=== PATIENT | male | born 1940 | race Caucasian/White ===

== ENCOUNTER 2018-08-17 13:12 | Inpatient (IN) | payer BC, OTHER ==
--- NOTE | 2018-08-17 14:07 | PDOC ---
Attending Attestation - HPI HPI: Patient is a 77 year old male with PMHx of blindness, DM, HTN, CAD, multiple stents, kidney stones, who was sent by his PCP with complaints of 3 weeks of RLQ pain and dysuria. Patient states that abdominal pain radiates to his back and groin. He states that this pain is not what his usual kidney stones feel like. Patient also notes burning upon urination. Denies any nausea, vomiting, diarrhea. Denies any chest pain, shortness of breath, difficulty breathing. Denies any recent travel or infections. PCP: Nicko Steele M.D. <Alexandra Ha - Last Filed: 08/17/18 14:44> - Resident Resident Name: Franklin Guillen - ED Attending Attestation I have performed the following: I have examined & evaluated the patient, The case was reviewed & discussed with the resident, I agree w/resident's findings & plan, Exceptions are as noted - Physicial Exam PE: 08/17/18 14:54 Patient is awake and alert, obese, in no distress Normocephalic and atraumatic mmm No JVD CTA RRR, tachycardic Abdomen is soft nondistended, mild to moderate right lower quadrant and right upper quadrant tenderness to deep palpation is appreciated, there is no guarding or rebound, no palpable hernias, positive right CVA tenderness to palpation; bowel sounds are normal and equal in all 4 quadrants - Medical Decision Making 08/17/18 14:55 77-year-old male presents with atraumatic right lower quadrant and right flank pain for the past 2 weeks, intermittent, associated with dysuria. Differential diagnosis includes hydronephrosis versus prostatitis versus appendicitis versus diverticulitis versus AAA. Bedside ultrasound shows no evidence of AAA. We'll obtain CBC/CMP/UA. Will obtain CT of abdomen and pelvis. Will reassess. <Lorenzo Wheeler - Last Filed: 08/17/18 14:56>
--- NOTE | 2018-08-17 14:14 | PDOC ---
History of Present Illness - General Chief Complaint: Pain Stated Complaint: SENT BY PCP R/O STONES Time Seen by Provider: 08/17/18 13:41 - History of Present Illness Initial Comments: 77 Yo M w a hx of kidney stones, HTN, T2DM, HLD, CAD s/p 2 stents, is here with 3 weeks of vague RLQ abdominal pain which radiates to his groin and right flank. He denies any nausea or vomiting. He has had mulitple uric acid kidney stones in the past, most recently in 1980. He states the pain he is currently experiencing is not like his prior kidney stones. He denies recent fevers, chills, or infections. Denies SOB, chest pain, or difficulty breathing. Denies dysuria, frequency, or urgency. Past History - Past Medical History Allergies/Adverse Reactions: Allergies Allergy/AdvReac Type Severity Reaction Status Date / Time No Known Allergies Allergy Verified 08/17/18 13:18 COPD: No DVT: No Diabetes: Yes HTN: Yes Hypercholesterolemia: Yes Kidney Stones: Yes Other medical history: blindness - Surgical History Cardiac Surgery: Yes (stents) - Suicide/Smoking/Psychosocial Hx Smoking History: Current some day smoker Cigars Per Day: 1 Information on smoking cessation initiated: Yes 'Breaking Loose' booklet given: 08/17/18 Hx Alcohol Use: No Drug/Substance Use Hx: No Substance Use Type: None Review of Systems - Review of Systems Constitutional: No: Fever, Malaise, Weakness, Unintentional Wgt. Loss HEENTM: No: Eye Pain, Recent change in vision (Patient is blind), Nose Congestion Respiratory: No: Cough, Orthopnea, Shortness of Breath, Stridor, Wheezing Cardiac (ROS): No: Chest Pain, Irregular Heart Rate, Lightheadedness ABD/GI: Yes: Symptoms Reported, See HPI. No: Abdominal Distended, Abd. Pain w/ defecation, Constipated, Diarrhea, Nausea, Poor Fluid Intake, Vomiting : Yes: Flank Pain, Hematuria (Patient is blind so cannot assess). No: Burning , Dysuria, Frequency Musculoskeletal: Yes: Back Pain. No: Neck Pain Integumentary: No: Bruising, Change in Color, Dryness, Erythema Neurological: No: Headache, Numbness, Paresthesia, Seizure, Tingling Psychiatric: No: Anxiety, Depression Endocrine: No: Excessive Sweating, Flushing, Intolerance to Cold, Intolerance to Heat Hematologic/Lymphatic: No: Anemia, Blood Clots, Easy Bleeding, Easy Bruising, Bleeding Diathesis *Physical Exam - Vital Signs Last Vital Signs Temp Pulse Resp BP Pulse Ox 98.2 F 112 H 18 127/74 97 08/17/18 13:15 08/17/18 13:15 08/17/18 13:15 08/17/18 13:15 08/17/18 13:15 - Physical Exam General Appearance: Yes: Appropriately Dressed, Mild Distress. No: Apparent Distress HEENT: positive: EOMI, BRANDON, Normal ENT Inspection, Normal Voice Neck: positive: Trachea midline, Normal Thyroid. negative: Tender Respiratory/Chest: positive: Lungs Clear, Normal Breath Sounds. negative: Respiratory Distress, Accessory Muscle Use, Crackles, Rales, Rhonchi, Stridor, Wheezing Cardiovascular: positive: Regular Rhythm, S1, S2, Tachycardia Vascular Pulses: Dorsalis-Pedis (R): 2+, Doralis-Pedis (L): 2+ Gastrointestinal/Abdominal: positive: Normal Bowel Sounds, Tender (RLQ), Soft, Other (Negative alicia, rovsig, psoas signs. ). negative: Organomegaly, Pulsatile Mass, Increased Bowel Sounds, Distended, Guarding, Rebound, Mass, Hepatomegaly Male Genitalia: positive: other (diffuse diaper rash ). negative: testicular tenderness, testicular mass, epididymus tender Lymphatic: negative: Adenopathy Musculoskeletal: positive: Normal Inspection, CVA Tenderness (R). negative: Decreased Range of Motion, Vertebral Tenderness Extremity: positive: Normal Capillary Refill, Normal Inspection, Normal Range of Motion Integumentary: positive: Normal Color, Dry, Warm. negative: Erythema, Jaundice Neurologic: positive: Fully Oriented, Alert, Normal Mood/Affect, Normal Response , Motor Strength 5/5. negative: EOM Palsy, Facial Droop, Numbness, Confused, Disoriented ED Treatment Course - LABORATORY CBC & Chemistry Diagram: 08/17/18 16:43 08/17/18 15:03 Medical Decision Making - Medical Decision Making 77 Yo M w a hx of kidney stones, HTN, T2DM, HLD, CAD s/p 2 stents, is here with 3 weeks of vague RLQ abdominal pain which radiates to his groin and right flank. DDx includes: AAA, testicular torsion, Appy, kidney stones, uti/pylo, gallbladder disease, epidydymitis. Bedisde US showed no evidence of gallstones. Negative alicia sign - Low suspicion for gallbladder disease. Testicular exam: cremasteric reflex is intact. No relief upon testicular elevation. Low suspicion for torsion or epidydymitis. Plan: Labs, urine, CTAP, analgesia, re-assess. Labs show elevated WBC count to 11.1. CTAP shows R sided hydroureter along with r sided renal stranding. Urine shows evidence of UTI with 3+ LE and positive Nitrite. Will start Abx with rocephen in the ED and admit patient. *DC/Admit/Observation/Transfer Diagnosis at time of Disposition: Sepsis, Pyelonephritis, Renal calculus, right - Discharge Dispostion Condition at time of disposition: Guarded Decision to Admit order: Yes - Referrals Referrals: Nicko Steele MD [Primary Care Provider] - - Patient Instructions - Post Discharge Activity
[2018-08-17] MEDS ORDERED: ACETAMINOPHEN 1000 MG/100 ML VIAL (NON FORMULARY) IVPB ONE (15:32)
[2018-08-17] MEDS ORDERED: SODIUM CHLORIDE 0.9% 500 ML INFUS.BAG IV ONE (15:32)
[2018-08-17 17:09] LABS: URINE APPEARANCE CLOUDY; URINE BILIRUBIN NEGATIVE (<2.0 mg/dL); URINE COLOR YELLOW; URINE GLUCOSE (UA) NEGATIVE (NEGATIVE); URINE KETONE NEGATIVE (NEGATIVE); URINE NITRITE POSITIVE (NEGATIVE); URINE UROBILINOGEN NEGATIVE mg/dL (0.2-1.0)
[2018-08-17 17:12] LABS: HEMATOCRIT 37.5 % (35.4-49); HEMOGLOBIN 12.4 GM/dL (11.7-16.9); LYMPH % 16.8 % (8-40); MCH 28.2 pg (25.7-33.7); MEAN CELL VOLUME 85.6 fl (80-96); MEAN PLT VOLUME 8.2 fl (7.5-11.1); MONO % 8.2 % (3.8-10.2); PLATELET COUNT 365 K/MM3 (134-434); RBC 4.38 M/mm3 (4.00-5.60); WHITE BLOOD COUNT 11.5 K/mm3 (4.0-10.0)
[2018-08-17 17:18] LABS: URINE LEUK ESTERASE 3+ (NEGATIVE); URINE PROTEIN 1+ (NEGATIVE)
[2018-08-17 17:19] LABS: URINE BACTERIA RARE /hpf (NONE SEEN); URINE MUCUS RARE
[2018-08-17] MEDS ORDERED: CEFTRIAXONE 1,000 MG in DEXTROSE 5%-WATER - 50 ML IVPB ONE (17:28)
[2018-08-17] MEDS ORDERED: morphine CARPU-JECT 4 MG/1 ML DISP.SYRIN IVPUSH ONE (17:52)
[2018-08-17] MEDS ORDERED: metFORMIN HCL 500 MG TABLET (FP) PO ONE (18:04)
[2018-08-17] MEDS ORDERED: glyBURIDE 5 MG TABLET (UD) PO ONE (18:05)
[2018-08-17] MEDS ORDERED: metoPROLOL SUCCINATE 25 MG TAB.SR.24H (FP) PO ONE (18:05)
[2018-08-17] MEDS ORDERED: morphine SULFATE 4 MG/ML VIAL ONE (18:23)
[2018-08-17] MEDS ORDERED: CEFTRIAXONE 1 GM/50 ML BAG ONE (18:23)
[2018-08-17] MEDS ORDERED: ACETAMINOPHEN INJECTION 100 ML IVPB ONE (18:23)
[2018-08-17] MEDS ORDERED: SODIUM CHLORIDE 500 ML IV STA (21:52)
[2018-08-17] MEDS ORDERED: ATORVASTATIN CA 20 MG TABLET (FP) PO SCH (22:00)
[2018-08-17] MEDS ORDERED: ATORVASTATIN CA 10 MG TABLET (FP) ONE (23:34)
--- NOTE | 2018-08-18 00:35 | HP ---
CHIEF COMPLAINT: RLQ Pain, R-Flank Pain PCP: Dr. Nicko Steele HISTORY OF PRESENT ILLNESS: This is a 77 y/o man with a past medical history of HTN, HLD, CAD s/p stents x2 , DM, Renal Calculi. Who presents to the ED with RLQ pain, radiating to R- flank and groin x 3 weeks. Patient reports having burning, frequency, urgency, dysuria. Patient denies fever, chills, cough, SOB, CP, N/V/D, constipation, melena, hematuria. ER course was notable for: (1) UA +1 protein, +3 barrett esterase, + Nitrate (2) WBC 11.5 (3) Lactic Acid 2.3 (4) CTAP- R-sided hydrourter along with R- sided renal stranding, no definite urinary tract calculus is visualized Recent Travel: None PAST MEDICAL HISTORY: See HPI PAST SURGICAL HISTORY: Stents x2 Social History: Smoking: Current Alcohol: Occasional Drugs: Denies use Lives with spouse Family History: Allergies No Known Allergies Allergy (Verified 08/17/18 13:18) HOME MEDICATIONS: Home Medications Medication Instructions Recorded Atorvastatin Calcium 20 mg PO HS 08/17/18 Gemfibrozil 600 mg PO BID 08/17/18 Glyburide [Diabeta -] 5 mg PO BID 08/17/18 Insulin Glargine,Hum.rec.anlog 44 unit SQ DAILY 08/17/18 [Toujeo Solostar] Lisinopril 20 mg PO DAILY 08/17/18 Metoprolol Succinate [Toprol Xl -] 25 mg PO BID 08/17/18 metFORMIN HCL [Metformin HCl] 1,000 mg PO BID 08/17/18 REVIEW OF SYSTEMS CONSTITUTIONAL: Absent: fever, chills, diaphoresis, generalized weakness, malaise, loss of appetite, weight change HEENT: Absent: rhinorrhea, nasal congestion, throat pain, throat swelling, difficulty swallowing, mouth swelling, ear pain, eye pain, visual changes CARDIOVASCULAR: Absent: chest pain, syncope, palpitations, irregular heart rate, lightheadedness , peripheral edema RESPIRATORY: Absent: cough, shortness of breath, dyspnea with exertion, orthopnea, wheezing, stridor, hemoptysis GASTROINTESTINAL:abdominal pain Absent: abdominal distension, nausea, vomiting, diarrhea, constipation, melena, hematochezia GENITOURINARY: dysuria, frequency, urgency, flank pain Absent: hesitancy, hematuria, genital pain MUSCULOSKELETAL: Absent: myalgia, arthralgia, joint swelling, back pain, neck pain SKIN: Absent: rash, itching, pallor HEMATOLOGIC/IMMUNOLOGIC: Absent: easy bleeding, easy bruising, lymphadenopathy, frequent infections ENDOCRINE: Absent: unexplained weight gain, unexplained weight loss, heat intolerance, cold intolerance NEUROLOGIC: Absent: headache, focal weakness or paresthesias, dizziness, unsteady gait, seizure, mental status changes, bladder or bowel incontinence PSYCHIATRIC: Absent: anxiety, depression, suicidal or homicidal ideation, hallucinations. PHYSICAL EXAMINATION Vital Signs - 24 hr 08/17/18 08/17/18 13:15 18:30 Temperature 98.2 F 98 F Pulse Rate 112 H Pulse Rate [ 105 H Right Radial] Respiratory 18 20 Rate Blood Pressure 127/74 Blood Pressure 120/67 [Left Arm] O2 Sat by Pulse 97 96 Oximetry (%) GENERAL: Awake, alert, and fully oriented, in no acute distress. HEAD: Normal with no signs of trauma. EYES: Pupils equal, round and reactive to light, extraocular movements intact, sclera anicteric, conjunctiva clear. No lid lag. EARS, NOSE, THROAT: Ears normal, nares patent, oropharynx clear without exudates. Moist mucous membranes. NECK: Normal range of motion, supple without lymphadenopathy, JVD, or masses. LUNGS: Breath sounds equal, clear to auscultation bilaterally. No wheezes, and no crackles. No accessory muscle use. HEART: Regular rate and rhythm, normal S1 and S2 without murmur, rub or gallop. ABDOMEN: Obese, soft, nontender, not distended, normoactive bowel sounds, no guarding, no rebound, no masses. No hepatomegaly or splenomegaly. (patient was medicated with morphine prior to exam) MUSCULOSKELETAL: Normal range of motion at all joints. No bony deformities or tenderness. No CVA tenderness. UPPER EXTREMITIES: 2+ pulses, warm, well-perfused. No cyanosis. No clubbing. No peripheral edema. LOWER EXTREMITIES: 2+ pulses, warm, well-perfused. No calf tenderness. No peripheral edema. NEUROLOGICAL: Cranial nerves II-XII intact. Normal speech. Gait not observed. PSYCHIATRIC: Cooperative. Good eye contact. Appropriate mood and affect. SKIN: Warm, dry, normal turgor, no rashes or lesions noted, normal capillary refill. Laboratory Results - last 24 hr 08/17/18 08/17/18 08/17/18 16:43 16:43 16:43 WBC 11.5 H RBC 4.38 Hgb 12.4 Hct 37.5 MCV 85.6 MCH 28.2 MCHC 33.0 RDW 14.0 Plt Count 365 MPV 8.2 Absolute Neuts (auto) 8.3 H Neutrophils % 72.0 Lymphocytes % 16.8 Monocytes % 8.2 Eosinophils % 2.0 Basophils % 1.0 Nucleated RBC % 0 Sodium Cancelled Potassium Cancelled Chloride Cancelled Carbon Dioxide Cancelled Anion Gap Cancelled BUN Cancelled Creatinine Cancelled Creat Clearance w eGFR Cancelled Random Glucose Cancelled Lactic Acid Calcium Cancelled Total Bilirubin Cancelled AST Cancelled ALT Cancelled Alkaline Phosphatase Cancelled Total Protein Cancelled Albumin Cancelled Lipase Urine Color Yellow Urine Appearance Cloudy Urine pH 5.0 Ur Specific Stephens 1.008 Urine Protein 1+ H Urine Glucose (UA) Negative Urine Ketones Negative Urine Blood Negative Urine Nitrite Positive Urine Bilirubin Negative Urine Urobilinogen Negative Ur Leukocyte Esterase 3+ H Urine WBC (Auto) 124 Urine RBC (Auto) None Urine Bacteria Rare Urine Mucus Rare 08/17/18 08/17/18 18:47 18:47 WBC RBC Hgb Hct MCV MCH MCHC RDW Plt Count MPV Absolute Neuts (auto) Neutrophils % Lymphocytes % Monocytes % Eosinophils % Basophils % Nucleated RBC % Sodium Cancelled Potassium Cancelled Chloride Cancelled Carbon Dioxide Cancelled Anion Gap Cancelled BUN Cancelled Creatinine Cancelled Creat Clearance w eGFR Cancelled Random Glucose Cancelled Lactic Acid 2.3 H* Calcium Cancelled Total Bilirubin Cancelled AST Cancelled ALT Cancelled Alkaline Phosphatase Cancelled Total Protein Cancelled Albumin Cancelled Lipase Cancelled Urine Color Urine Appearance Urine pH Ur Specific Stephens Urine Protein Urine Glucose (UA) Urine Ketones Urine Blood Urine Nitrite Urine Bilirubin Urine Urobilinogen Ur Leukocyte Esterase Urine WBC (Auto) Urine RBC (Auto) Urine Bacteria Urine Mucus ASSESSMENT/PLAN: This is a 77 y/o man with a PMHx of: HTN, HLD, CAD s/p Stents x2, Renal Calculi , DM. Admitted for Urosepsis secondary to UTI, Pyelonephritis for further evaluation of their emergent condition. Plan: FEN IVF Replete lytes prn Low Na Diet Code Status: Full Code Dispo: Requires Inpatient Care Problem List - Problem (1) Sepsis Assessment/Plan: - Secondary to UTI - Sepsis Criteria Met III- WBC 11.5, +UTI, Lactic Acid 2.3 - UA +1 protein, +1 leukocyte esterase, +nitrates - Urine Culture-pending - Lactic Acid 2.3 will Hold Metformin - NS bolus ordered - IVF - Ceftriaxone given in ED, will continue - Monitor CBC, BMP - Monitor vitals - Tylenol prn Code(s): A41.9 - SEPSIS, UNSPECIFIED ORGANISM (2) Pyelonephritis Assessment/Plan: - See Above - CTAP- R sided hydrourter along with R- sided renal stranding. No definite urinary tract calculus is visualized - Appreciate Urology consult Code(s): N12 - TUBULO-INTERSTITIAL NEPHRITIS, NOT SPCF ACUTE OR CHRONIC (3) Hydroureter on right Assessment/Plan: - Flomax - IVF - Monitor vitals Code(s): N13.4 - HYDROURETER (4) ASHD (arteriosclerotic heart disease) Code(s): I25.10 - ATHSCL HEART DISEASE OF [place] CORONARY ARTERY W/O ANG PCTRS (5) HTN (hypertension) Assessment/Plan: - Stable - Monitor BP - Continue Metoprolol, Lisinopril - Monitor renal function Code(s): I10 - ESSENTIAL (PRIMARY) HYPERTENSION (6) Diabetes 1.5, managed as type 1 Assessment/Plan: - Pending Chemistry - LA 2.3 - Will hold Metformin tonight, reassess in am - BGMs Code(s): E10.9 - TYPE 1 DIABETES MELLITUS WITHOUT COMPLICATIONS (7) HLD (hyperlipidemia) Assessment/Plan: - Continue Lipitor Code(s): E78.5 - HYPERLIPIDEMIA, UNSPECIFIED Visit type - Emergency Visit Emergency Visit: Yes ED Registration Date: 08/17/18 Care time: The patient presented to the Emergency Department on the above date and was hospitalized for further evaluation of their emergent condition. - New Patient This patient is new to me today: Yes Date on this admission: 08/17/18 - Critical Care Critical Care patient: No
[2018-08-18 01:28] LABS: ANION GAP 10 MMOL/L (8-16); BLOOD UREA NITROGEN 15 mg/dL (7-18); CALCIUM 8.8 mg/dL (8.5-10.1); CHLORIDE 104 mmol/L (98-107); CO2 24 mmol/L (21-32); CREATININE 0.8 mg/dL (0.55-1.3); GLUCOSE,RANDOM 62 mg/dL (74-106); POTASSIUM 3.6 mmol/L (3.5-5.1); SODIUM 137 mmol/L (136-145)
[2018-08-18 04:19] VITALS: BMI 29.8
[2018-08-18] MEDS: GEMFIBROZIL 600 MG TABLET (FP) PO SCH (06:14)
[2018-08-18 07:17] LABS: BASO % 0.8 % (0-2.0); EOS % 2.2 % (0-4.5); HEMATOCRIT 36.8 % (35.4-49); HEMOGLOBIN 11.9 GM/dL (11.7-16.9); LYMPH % 13.9 % (8-40); MCH 27.9 pg (25.7-33.7); MCHC 32.4 g/dl (32.0-35.9); MEAN CELL VOLUME 86.1 fl (80-96); MEAN PLT VOLUME 7.5 fl (7.5-11.1); MONO % 9.5 % (3.8-10.2); NEUT % 73.6 % (42.8-82.8); PLATELET COUNT 380 K/MM3 (134-434); RBC 4.27 M/mm3 (4.00-5.60); WHITE BLOOD COUNT 12.7 K/mm3 (4.0-10.0)
[2018-08-18 07:46] LABS: ANION GAP 9 MMOL/L (8-16); BLOOD UREA NITROGEN 12 mg/dL (7-18); CALCIUM 8.7 mg/dL (8.5-10.1); CHLORIDE 103 mmol/L (98-107); CO2 23 mmol/L (21-32); CREATININE 0.7 mg/dL (0.55-1.3); GLUCOSE,RANDOM 65 mg/dL (74-106); POTASSIUM 3.4 mmol/L (3.5-5.1); SODIUM 135 mmol/L (136-145)
[2018-08-18] MEDS ORDERED: POTASSIUM CHLORIDE TABS 20 MEQ TABLET.ER (FP) PO ONE (07:51)
--- NOTE | 2018-08-18 08:08 | PN ---
Progress Note, Physician Chief Complaint: Admitted yesterday from MD office when he presented with tachycardia, right flank pain. On CT in the ER dilated right ureter and mild hydronephrosis. Started on IV ABX, fluids. History of Present Illness: DM 2 HTN ASHD S/P [place] Hx of uric acid stones. - Current Medication List Current Medications: Active Medications Atorvastatin Calcium (Lipitor -) 20 mg PO HS [facility] Gemfibrozil (Lopid -) 600 mg PO DAILY@0700 [facility] Last Admin: 08/18/18 06:14 Dose: 600 mg Potassium Chloride/Dextrose/Sod Cl (D5-1/2ns+10 Meq Kcl -) 10 meq in 1,000 mls @ 100 mls/hr IV [facility] [place] Insulin Aspart (Novolog Vial Sliding Scale -) 1 vial SQ ACHS [facility]; Protocol Insulin Detemir (Levemir Vial) 10 units SQ HS [facility] Lisinopril (Prinivil) 20 mg PO DAILY [facility] Metformin HCl (Glucophage -) 1,000 mg PO BIDI [facility] Metoprolol Succinate (Toprol Xl -) 25 mg PO BID [facility] - Objective Vital Signs: Vital Signs Temperature 98.5 F 08/18/18 03:36 Pulse Rate 89 08/18/18 06:26 Respiratory Rate 20 08/18/18 03:36 Blood Pressure 129/69 08/18/18 06:26 O2 Sat by Pulse Oximetry (%) 100 08/18/18 02:20 Constitutional: Yes: No Distress, Calm Eyes: Yes: Other (Legally blind) HENT: Yes: Atraumatic, Normocephalic Neck: Yes: Supple, Trachea Midline Cardiovascular: Yes: Regular Rate and Rhythm, S1, S2 Respiratory: Yes: CTA Bilaterally. No: Accessory Muscle Use Gastrointestinal: Yes: Normal Bowel Sounds, Soft. No: Abdomen, Obese ...Rectal Exam: Yes: Deferred Genitourinary: Yes: CVA Tenderness - Right. No: Anuria Musculoskeletal: Yes: WNL Extremities: No: Amputation, Calf Tenderness Edema: No Integumentary: Yes: WNL Neurological: Yes: Alert, Oriented ...Motor Strength: WNL Psychiatric: Yes: WNL Labs: CBC, BMP 08/18/18 06:30 08/18/18 06:30 Problem List - Problems (1) Hydroureter on right Assessment/Plan: Nephrology consult Code(s): N13.4 - HYDROURETER (2) Pyelonephritis Code(s): N12 - TUBULO-INTERSTITIAL NEPHRITIS, NOT SPCF ACUTE OR CHRONIC (3) Sepsis Assessment/Plan: Resolving IV ABX Code(s): A41.9 - SEPSIS, UNSPECIFIED ORGANISM (4) Diabetes 1.5, managed as type 1 Assessment/Plan: BGM Levemir Follow BGM Code(s): E10.9 - TYPE 1 DIABETES MELLITUS WITHOUT COMPLICATIONS (5) ASHD (arteriosclerotic heart disease) Code(s): I25.10 - ATHSCL HEART DISEASE OF [place] CORONARY ARTERY W/O ANG PCTRS (6) Hypokalemia Code(s): E87.6 - HYPOKALEMIA
--- NOTE | 2018-08-18 08:18 | CON.GU ---
Consult Consult Specialty:: urology Referred by:: Cedric Reason for Consultation:: right renal colic with mild hydronephrosis - History of Present Illness Chief Complaint: right renal colic History of Present Illness: Patient is a 77 yo male with history of uric acid stones with right renal colic x 3 weeks. Patient noted episodic nausea without vomiting or gross hematuria. Patient denies fever or chills. Patient noted increased urinary frequency and urgency. Patient is legally blind and had his check urine for hematuria. - History Source History Provided By: Patient Limitations to Obtaining History: No Limitations - Alcohol/Substance Use Hx Alcohol Use: Yes (SOCIALLY) - Smoking History Smoking history: Current some day smoker Home Medications - Allergies Allergies/Adverse Reactions: Allergies Allergy/AdvReac Type Severity Reaction Status Date / Time No Known Allergies Allergy Verified 08/17/18 13:18 - Home Medications Home Medications: Ambulatory Orders Atorvastatin Calcium 20 mg PO HS 08/17/18 Gemfibrozil 600 mg PO BID 08/17/18 Glyburide [Diabeta -] 5 mg PO BID 08/17/18 Insulin Glargine,Hum.rec.anlog [Touelielo Solostar] 44 unit SQ DAILY 08/17/18 Lisinopril 20 mg PO DAILY 08/17/18 Metoprolol Succinate [Toprol Xl -] 25 mg PO BID 08/17/18 metFORMIN HCL [Metformin HCl] 1,000 mg PO BID 08/17/18 Physical Exam- Vital Signs: Vital Signs Temperature 98.5 F 08/18/18 03:36 Pulse Rate 89 08/18/18 06:26 Respiratory Rate 20 08/18/18 03:36 Blood Pressure 129/69 08/18/18 06:26 O2 Sat by Pulse Oximetry (%) 100 08/18/18 02:20 Constitutional: Yes: Well Nourished, No Distress, Calm Eyes: Yes: Other (legally blind) HENT: Yes: WNL, Atraumatic, Normocephalic Neck: Yes: WNL, Supple, Trachea Midline Cardiovascular: Yes: WNL, Regular Rate and Rhythm Respiratory: Yes: WNL, Regular Gastrointestinal: Yes: WNL, Normal Bowel Sounds, Soft Renal/: Yes: WNL Kidneys: Yes: WNL Pelvis: Yes: WNL, Bladder Non Palpable Testicles: Yes: WNL Scrotum: Yes: WNL Penis: Yes: WNL Prostate Exam: Yes: Deferred Labs: CBC, BMP 08/18/18 06:30 08/18/18 06:30 Imaging - Results Cat Scan: Report Reviewed, Image Reviewed Assessment/Plan impression uti mild right hydronephrosis probable passed ureteral stone bph plan continue ceftriaxone and follow urine cultures start flomax 0.4 mg daily will follow-up as outpatient
[2018-08-18] MEDS ORDERED: TAMSULOSIN HCL 0.4 MG CAP.ER.24H (FP) PO ONE (08:19)
[2018-08-18] MEDS: metoPROLOL SUCCINATE 25 MG TAB.SR.24H (FP) PO SCH ×2 (08:59→21:12)
[2018-08-18] MEDS: D5-1/2NS+10 MEQ KCL - 10 MEQ/1,000 ML INFUS.BAG IV SCH (08:59)
[2018-08-18] MEDS: LISINOPRIL 20 MG TABLET (FP) PO SCH (08:59)
[2018-08-18 09:11] LABS: LIPASE 113 U/L (73-393)
[2018-08-18] MEDS ORDERED: cefTRIAXone SODIUM 1 GM VIAL ONE (10:21)
[2018-08-18] MEDS ORDERED: DEXTROSE 5%-WATER - 50 ML IVPB ONE (10:21)
[2018-08-18] MEDS: CEFTRIAXONE 1 GM in DEXTROSE 5%-WATER - 50 ML IVPB SCH (10:32)
--- NOTE | 2018-08-18 11:10 | CON.GI ---
Consult Consult Specialty:: Gi covering for Dr Ross Referred by:: Dr Steele - History of Present Illness History of Present Illness: 77 y/o male with past medical history of HTN, HLD, CAD s/p stents x2, DM, Renal Calculi presents to the ED with RLQ pain, radiating to R- flank and groin x 3 weeks. Patient reports having burning, frequency, urgency, dysuria. Patient denies fever, chills, cough, SOB, CP, N/V/D, constipation, melena, hematuria. On ct a 7.5cm mass was noted in the the right hepatic lobe. - Alcohol/Substance Use Hx Alcohol Use: Yes (SOCIALLY) - Smoking History Smoking history: Current some day smoker Home Medications - Allergies Allergies/Adverse Reactions: Allergies Allergy/AdvReac Type Severity Reaction Status Date / Time No Known Allergies Allergy Verified 08/17/18 13:18 - Home Medications Home Medications: Ambulatory Orders Atorvastatin Calcium 20 mg PO HS 08/17/18 Gemfibrozil 600 mg PO BID 08/17/18 Glyburide [Diabeta -] 5 mg PO BID 08/17/18 Insulin Glargine,Hum.rec.anlog [Toujeo Solostar] 44 unit SQ DAILY 08/17/18 Lisinopril 20 mg PO DAILY 08/17/18 Metoprolol Succinate [Toprol Xl -] 25 mg PO BID 08/17/18 metFORMIN HCL [Metformin HCl] 1,000 mg PO BID 08/17/18 Physical Exam-GI Vital Signs: Vital Signs Temperature 98.5 F 08/18/18 03:36 Pulse Rate 89 08/18/18 06:26 Respiratory Rate 20 08/18/18 03:36 Blood Pressure 129/69 08/18/18 06:26 O2 Sat by Pulse Oximetry (%) 100 08/18/18 02:20 Constitutional: Yes: Well Nourished Eyes: Yes: Conjunctiva Clear HENT: Yes: Atraumatic Neck: Yes: Supple Cardiovascular: Yes: Regular Rate and Rhythm Respiratory: Yes: CTA Bilaterally ...Palpate: Yes: Soft. No: Firm/Rigid, Guarding, Hepatomegaly, Mass, Pulsatile Mass, Splenomegaly, Tenderness Labs: CBC, BMP 08/18/18 06:30 08/18/18 06:30 Imaging - Results Cat Scan: Report Reviewed (ct without contrast--mass in the righ thepatic lobe) Problem List - Problems (1) Liver neoplasm Assessment/Plan: R>MRI with IV contrast AFP Hepatitis profile Dr Nava is covering for Dr Ross in am
[2018-08-18] MEDS ORDERED: INSULIN (NOVOLOG) ASPART 100 UNITS/ML 10ML VIAL ONE (11:36)
[2018-08-18] MEDS: INSULIN SLIDING SCALE (NOVOLOG) 1 VIAL SQ SCH ×3 (11:40→21:16)
--- NOTE | 2018-08-18 15:46 | CON.ID ---
Consult Consult Specialty:: pin,dysuria Reason for Consultation:: uti - History of Present Illness Chief Complaint: pain and burning in urine History of Present Illness: 77 y/o man with a past medical history of HTN, HLD, CAD s/p stents x2, DM, Renal Calculi. Who presents to the ED with RLQ pain, radiating to R- flank and groin x 3 weeks. Patient reports having burning, frequency, urgency, dysuria. Patient denies fever, chills, cough, SOB, CP, N/V/D, constipation, melena, hematuria. - History Source History Provided By: Patient, Family Member Limitations to Obtaining History: No Limitations - Alcohol/Substance Use Hx Alcohol Use: Yes (SOCIALLY) - Smoking History Smoking history: Current some day smoker Home Medications - Allergies Allergies/Adverse Reactions: Allergies Allergy/AdvReac Type Severity Reaction Status Date / Time No Known Allergies Allergy Verified 08/17/18 13:18 - Home Medications Home Medications: Ambulatory Orders Atorvastatin Calcium 20 mg PO HS 08/17/18 Gemfibrozil 600 mg PO BID 08/17/18 Glyburide [Micronase -] 5 mg PO BID 08/17/18 Insulin Glargine,Hum.rec.anlog [Toujeo Solostar] 44 unit SQ DAILY 08/17/18 Lisinopril 20 mg PO DAILY 08/17/18 Metoprolol Succinate [Toprol XL -] 25 mg PO BID 08/17/18 metFORMIN HCL [Metformin HCl] 1,000 mg PO BID 08/17/18 Cefuroxime Axetil [Ceftin -] 500 mg PO Q12H #10 tablet 08/19/18 Review of Systems - Review of Systems Constitutional: reports: No Symptoms Eyes: reports: No Symptoms HENT: reports: No Symptoms Neck: reports: No Symptoms Cardiovascular: reports: No Symptoms Respiratory: reports: No Symptoms Gastrointestinal: reports: No Symptoms Genitourinary: reports: Burning Musculoskeletal: reports: No Symptoms Integumentary: reports: No Symptoms Neurological: reports: No Symptoms Endocrine: reports: No Symptoms Hematology/Lymphatic: reports: No Symptoms Psychiatric: reports: No Symptoms Physical Exam Vital Signs: Vital Signs Temperature 98.2 F 08/18/18 14:00 Pulse Rate 68 08/18/18 09:00 Respiratory Rate 20 08/18/18 09:00 Blood Pressure 160/87 08/18/18 09:00 O2 Sat by Pulse Oximetry (%) 100 08/18/18 02:20 Labs: CBC, BMP 08/18/18 06:30 08/18/18 06:30 Imaging - Results Chest X-ray: Report Reviewed, Image Reviewed Cat Scan: Report Reviewed, Image Reviewed Assessment/Plan Assessment/Plan impression uti mild right hydronephrosis leukocytosis bph plan continue ceftriaxone monitor wbc rest as per the team urology
[2018-08-18] MEDS: metFORMIN HCL 500 MG TABLET (FP) PO SCH (17:25)
[2018-08-18] MEDS ORDERED: ATORVASTATIN CA 20 MG TABLET (FP) PO SCH (22:00)
[2018-08-18] MEDS ORDERED: INSULIN (LEVEMIR) 100 UNITS/ML UNITS SQ SCH (22:00)
--- NOTE | 2018-08-18 22:02 | EKG ---
Test Reason : Blood Pressure : / mmHG Vent. Rate : 106 BPM Atrial Rate : 106 BPM P-R Int : 138 ms QRS Dur : 096 ms QT Int : 374 ms P-R-T Axes : 010 -06 065 degrees QTc Int : 496 ms SINUS TACHYCARDIA SEPTAL INFARCT , AGE UNDETERMINED ABNORMAL ECG NO PREVIOUS ECGS AVAILABLE Confirmed by KAVITHA PRABHAKAR MD ([id number]) on 08/18/2018 10:02:13 PM Referred By: Confirmed By:KAVITHA PRABHAKAR MD
[2018-08-19] MEDS ORDERED: PT OWN MED DRAWER 7, Y5N ONE (05:06)
[2018-08-19] MEDS: D5-1/2NS+10 MEQ KCL - 10 MEQ/1,000 ML INFUS.BAG IV SCH (05:15)
[2018-08-19] MEDS: INSULIN SLIDING SCALE (NOVOLOG) 1 VIAL SQ SCH ×2 (06:10→12:01)
[2018-08-19] MEDS: GEMFIBROZIL 600 MG TABLET (FP) PO SCH (06:21)
[2018-08-19] MEDS: metFORMIN HCL 500 MG TABLET (FP) PO SCH (06:21)
[2018-08-19 08:17] LABS: BASO % 0.8 % (0-2.0); EOS % 4.4 % (0-4.5); HEMATOCRIT 35.4 % (35.4-49); LYMPH % 20.7 % (8-40); MCH 28.8 pg (25.7-33.7); MCHC 33.8 g/dl (32.0-35.9); MEAN CELL VOLUME 85.2 fl (80-96); MEAN PLT VOLUME 7.6 fl (7.5-11.1); MONO % 9.7 % (3.8-10.2); NEUT % 64.4 % (42.8-82.8); PLATELET COUNT 389 K/MM3 (134-434); RBC 4.16 M/mm3 (4.00-5.60); WHITE BLOOD COUNT 9.3 K/mm3 (4.0-10.0)
[2018-08-19 08:29] LABS: ALBUMIN 3.1 g/dl (3.4-5.0); ALK PHOS 90 U/L (45-117); ANION GAP 9 MMOL/L (8-16); BILIRUBIN,TOTAL 0.5 mg/dL (0.2-1); BLOOD UREA NITROGEN 12 mg/dL (7-18); CALCIUM 9.2 mg/dL (8.5-10.1); CHLORIDE 104 mmol/L (98-107); CO2 23 mmol/L (21-32); CREATININE 0.7 mg/dL (0.55-1.3); GLUCOSE,RANDOM 127 mg/dL (74-106); POTASSIUM 4.3 mmol/L (3.5-5.1); SGOT/AST 16 U/L (15-37); SGPT/ALT 14 U/L (13-61); SODIUM 136 mmol/L (136-145)
--- NOTE | 2018-08-19 09:13 | PN ---
Progress Note, Physician Chief Complaint: No new complaints No pain. GI recommended MRI liver History of Present Illness: DM 2 HTN ASHD S/P TN Hx of uric acid stones. - Current Medication List Current Medications: Active Medications Atorvastatin Calcium (Lipitor -) 20 mg PO HS [facility] Last Admin: 08/18/18 21:12 Dose: 20 mg Clopidogrel Bisulfate (Plavix -) 75 mg PO DAILY [facility] Gemfibrozil (Lopid -) 600 mg PO DAILY@0700 [facility] Last Admin: 08/19/18 06:21 Dose: 600 mg Potassium Chloride/Dextrose/Sod Cl (D5-1/2ns+10 Meq Kcl -) 10 meq in 1,000 mls @ 100 mls/hr IV ASDIR [facility] Last Admin: 08/19/18 05:15 Dose: 100 mls/hr Ceftriaxone Sodium 1 gm/ (Dextrose) 50 mls @ 100 mls/hr IVPB DAILY [facility] Last Admin: 08/18/18 10:32 Dose: 100 mls/hr Insulin Aspart (Novolog Vial Sliding Scale -) 1 vial SQ [facility]; Protocol Last Admin: 08/19/18 06:10 Dose: Not Given Insulin Detemir (Levemir Vial) 10 units SQ [facility] Last Admin: 08/18/18 21:12 Dose: 10 units Lisinopril (Prinivil) 20 mg PO DAILY [facility] Last Admin: 08/18/18 08:59 Dose: 20 mg Metformin HCl (Glucophage -) 1,000 mg PO BIDI [facility] Last Admin: 08/19/18 06:21 Dose: 1,000 mg Metoprolol Succinate (Toprol Xl -) 25 mg PO BID [facility] Last Admin: 08/18/18 21:12 Dose: 25 mg - Objective Vital Signs: Vital Signs Temperature 97.8 F 08/19/18 06:00 Pulse Rate 106 H 08/19/18 06:00 Respiratory Rate 20 08/19/18 06:00 Blood Pressure 116/70 08/19/18 06:00 O2 Sat by Pulse Oximetry (%) 100 08/18/18 02:20 Constitutional: Yes: No Distress, Calm. No: Anxious Eyes: Yes: Conjunctiva Clear, Other (Legally blind) HENT: Yes: Atraumatic, Normocephalic Neck: Yes: Supple, Trachea Midline Cardiovascular: Yes: Regular Rate and Rhythm. No: Bradycardia, Tachycardia Respiratory: Yes: Regular, CTA Bilaterally Gastrointestinal: Yes: Normal Bowel Sounds, Soft ...Rectal Exam: Yes: Deferred Genitourinary: No: Anuria, Bladder Distention Musculoskeletal: No: Back Pain, Joint Stiffness, Joint Swelling Extremities: No: Amputation, Calf Tenderness Edema: No Integumentary: Yes: WNL Neurological: Yes: Alert, Oriented. No: Aphasia, Asterixis, Lethargy, Loss of Sensation, Pre-Existing Deficit, Seizure ...Motor Strength: WNL Psychiatric: Yes: Alert, Oriented. No: Agitated, Suicidal Ideation Labs: CBC, BMP 08/19/18 06:50 08/19/18 06:50 Problem List - Problems (1) Hydroureter on right Assessment/Plan: Urology F/U Code(s): N13.4 - HYDROURETER (2) Pyelonephritis Assessment/Plan: Continue PO ABX x5 days Code(s): N12 - TUBULO-INTERSTITIAL NEPHRITIS, NOT SPCF ACUTE OR CHRONIC (3) Sepsis Assessment/Plan: Resolved IV ABX-Ceftriaxone will change to PO Code(s): A41.9 - SEPSIS, UNSPECIFIED ORGANISM (4) Diabetes 1.5, managed as type 1 Assessment/Plan: BGM Levemir Follow BGM Code(s): E10.9 - TYPE 1 DIABETES MELLITUS WITHOUT COMPLICATIONS (5) ASHD (arteriosclerotic heart disease) Code(s): I25.10 - ATHSCL HEART DISEASE OF [place] CORONARY ARTERY W/O ANG PCTRS (6) Hypokalemia Assessment/Plan: Resolved. 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 MRI as outpt [facility]
--- NOTE | 2018-08-19 09:15 | DS ---
Physical Examination Vital Signs: Vital Signs Temperature 97.8 F 08/19/18 06:00 Pulse Rate 106 H 08/19/18 06:00 Respiratory Rate 20 08/19/18 06:00 Blood Pressure 116/70 08/19/18 06:00 O2 Sat by Pulse Oximetry (%) 100 08/18/18 02:20 Constitutional: Yes: No Distress, Calm. No: Anxious Eyes: Yes: Other (Blind) HENT: Yes: Atraumatic, Normocephalic Neck: Yes: Trachea Midline. No: Lymphadenopathy Cardiovascular: Yes: Regular Rate and Rhythm. No: Bradycardia, Pulse Irregular Respiratory: Yes: CTA Bilaterally, Accessory Muscle Use Gastrointestinal: Yes: Normal Bowel Sounds, Soft, Abdomen, Obese ...Rectal Exam: Yes: Deferred Renal/: No: Anuria Breast(s): Yes: WNL Musculoskeletal: Yes: WNL Extremities: Yes: WNL Edema: No Integumentary: Yes: WNL Neurological: Yes: Alert, Oriented. No: Aphasia, Asterixis, Ataxia ...Motor Strength: WNL Psychiatric: Yes: Alert, Oriented. No: Agitated, Suicidal Ideation Labs: CBC, BMP 08/19/18 06:50 08/19/18 06:50 Discharge Summary Reason For Visit: SEPSIS/ PYELONEPHRITIS/ liver mass Current Active Problems ASHD (arteriosclerotic heart disease) (Acute) Diabetes 1.5, managed as type 1 (Acute) HLD (hyperlipidemia) (Acute) HTN (hypertension) (Acute) Hydroureter on right (Acute) Hypokalemia (Acute) Liver neoplasm (Acute) Pyelonephritis (Acute) Renal calculus, right (Acute) Sepsis (Acute) Condition: Improved - Instructions Referrals: Nicko Steele MD [Primary Care Provider] - Disposition: HOME - Home Medications Comprehensive Discharge Medication List: Ambulatory Orders Atorvastatin Calcium 20 mg PO HS 08/17/18 Gemfibrozil 600 mg PO BID 08/17/18 Glyburide [Diabeta -] 5 mg PO BID 08/17/18 Insulin Glargine,Hum.rec.anlog [Ronda Solostar] 44 unit SQ DAILY 08/17/18 Lisinopril 20 mg PO DAILY 08/17/18 Metoprolol Succinate [Toprol Xl -] 25 mg PO BID 10/03/18 metFORMIN HCL [Metformin HCl] 1,000 mg PO BID 08/17/18
--- NOTE | 2018-08-19 09:46 | PN ---
Progress Note, Physician History of Present Illness: patient doing well no complaints now wbc normal doing well - Current Medication List Current Medications: Active Medications Atorvastatin Calcium (Lipitor -) 20 mg PO HS [facility] Last Admin: 08/18/18 21:12 Dose: 20 mg Clopidogrel Bisulfate (Plavix -) 75 mg PO DAILY [facility] Gemfibrozil (Lopid -) 600 mg PO DAILY@0700 [facility] Last Admin: 08/19/18 06:21 Dose: 600 mg Potassium Chloride/Dextrose/Sod Cl (D5-1/2ns+10 Meq Kcl -) 10 meq in 1,000 mls @ 100 mls/hr IV ASDIR [facility] Last Admin: 08/19/18 05:15 Dose: 100 mls/hr Ceftriaxone Sodium 1 gm/ (Dextrose) 50 mls @ 100 mls/hr IVPB DAILY [facility] Last Admin: 08/18/18 10:32 Dose: 100 mls/hr Insulin Aspart (Novolog Vial Sliding Scale -) 1 vial SQ [facility]; Protocol Last Admin: 08/19/18 06:10 Dose: Not Given Insulin Detemir (Levemir Vial) 10 units SQ [facility] Last Admin: 08/18/18 21:12 Dose: 10 units Lisinopril (Prinivil) 20 mg PO DAILY [facility] Last Admin: 08/18/18 08:59 Dose: 20 mg Metformin HCl (Glucophage -) 1,000 mg PO BIDI [facility] Last Admin: 08/19/18 06:21 Dose: 1,000 mg Metoprolol Succinate (Toprol Xl -) 25 mg PO BID [facility] Last Admin: 08/18/18 21:12 Dose: 25 mg - Objective Vital Signs: Vital Signs Temperature 97.8 F 08/19/18 06:00 Pulse Rate 106 H 08/19/18 06:00 Respiratory Rate 20 08/19/18 06:00 Blood Pressure 116/70 08/19/18 06:00 O2 Sat by Pulse Oximetry (%) 100 08/18/18 02:20 Constitutional: Yes: No Distress, Calm Cardiovascular: Yes: Regular Rate and Rhythm Respiratory: Yes: Regular, CTA Bilaterally Gastrointestinal: Yes: Normal Bowel Sounds, Soft Musculoskeletal: Yes: WNL Extremities: Yes: WNL Neurological: Yes: Alert, Oriented Psychiatric: Yes: Alert, Oriented Labs: CBC, BMP 08/19/18 06:50 08/19/18 06:50 Assessment/Plan Assessment/Plan impression uti mild right hydronephrosis leukocytosis bph plan stable continue as per the team
[2018-08-19] MEDS ORDERED: CLOPIDOGREL BISULFATE 75 MG TABLET (FP) PO SCH (10:00)
[2018-08-19 10:05] VITALS: BP 91/58; PULSE 97; TEMP 98.2
[2018-08-19] MEDS ORDERED: cefTRIAXone SODIUM 1 GM VIAL ONE (10:09)
[2018-08-19] MEDS ORDERED: DEXTROSE 5%-WATER - 50 ML IVPB ONE (10:09)
[2018-08-19] MEDS: CEFTRIAXONE 1 GM in DEXTROSE 5%-WATER - 50 ML IVPB SCH (10:12)
[2018-08-19] MEDS: LISINOPRIL 20 MG TABLET (FP) PO SCH (10:14)
[2018-08-19] MEDS: metoPROLOL SUCCINATE 25 MG TAB.SR.24H (FP) PO SCH (10:14)
[2018-08-23 00:06] LABS: HEP B CORE AB, IGM Negative (Negative); HEP B CORE AB, TOT Negative (Negative)
== END 2018-08-19 12:34 | disposition home or self-care (01) | DRG 872 ==
LOC: JER 13:12 → JERBED 20:43 → J6S 08-18 03:27
PROVIDERS: ADMIT Internal Medicine; ATTEND Internal Medicine
DX: A41.9 Sepsis, unspecified organism (principal); N13.6 Pyonephrosis; E11.9 Type 2 diabetes mellitus without complications; I25.10 Atherosclerotic heart disease of native coronary artery without angina pectoris; D18.00 Hemangioma unspecified site; N40.1 Benign prostatic hyperplasia with lower urinary tract symptoms; I10 Essential (primary) hypertension; Z95.5 Presence of coronary angioplasty implant and graft; E66.9 Obesity, unspecified; Z68.29 Body mass index [BMI] 29.0-29.9, adult; E78.5 Hyperlipidemia, unspecified; F17.210 Nicotine dependence, cigarettes, uncomplicated; Z79.4 Long term (current) use of insulin; Z79.84 Long term (current) use of oral hypoglycemic drugs; E87.6 Hypokalemia; N40.0 Benign prostatic hyperplasia without lower urinary tract symptoms; I25.2 Old myocardial infarction; D18.09 Hemangioma of other sites; N20.0 Calculus of kidney
CPT/HCPCS: 36415; 71045-TC-FY; 74176-TC; 80048; 80053; 81003; 81015; 82105; 82962; 83605; 83690; 85025; 86704; 86705; 86706; 86707; 86803; 87040; 87086; 87186; 93005; 93010; 99285-25; J0131

== ENCOUNTER 2020-12-09 19:11 | Inpatient (IN) | payer BC, OTHER ==
[2020-12-09 22:24] LABS: BASO % 0.8 % (0-2.0); HEMOGLOBIN 13.9 GM/dL (11.7-16.9); LYMPH % 14.5 % (8-40); MCH 29.8 pg (25.7-33.7); MCHC 34.7 g/dl (32.0-35.9); MEAN CELL VOLUME 85.8 fl (80-96); MEAN PLT VOLUME 7.2 fl (7.5-11.1); MONO % 11.3 % (3.8-10.2); NEUT % 72.4 % (42.8-82.8); PLATELET COUNT 383 K/MM3 (134-434); RBC 4.66 M/mm3 (4.00-5.60); RDW 13.7 % (11.9-15.9); WHITE BLOOD COUNT 10.8 K/mm3 (4.0-10.0)
[2020-12-09 22:31] LABS: INR 1.15 (0.83-1.09); PROTHROMBIN TIME (PATIENT) 13.9 SEC (9.7-13.0)
[2020-12-09 22:34] LABS: EPI CELLS 8 /uL (0-25.1); HYALINE CASTS 2 /uL (0-3.1); PH,URINE 5.5 (5.0-8.0); URINE APPEARANCE CLOUDY; URINE BACTERIA 3034 /uL (0-1359); URINE BILIRUBIN NEGATIVE (NEGATIVE); URINE COLOR YELLOW; URINE GLUCOSE (UA) 3+ (NEGATIVE); URINE KETONE NEGATIVE (NEGATIVE); URINE LEUK ESTERASE 3+ (NEGATIVE); URINE NITRITE NEGATIVE (NEGATIVE); URINE PROTEIN 1+ (NEGATIVE); URINE RBC 18 /uL (0-23.9); URINE UROBILINOGEN 0.2 mg/dL (0.2-1.0); URINE WBC 1629 /uL (0-25.8)
[2020-12-09 22:34] LABS: ACTIVATED PTT 35.1 SECONDS (25.2-36.5)
[2020-12-09 22:44] LABS: POTASSIUM 4.7 mmol/L (3.5-5.1)
[2020-12-09 22:46] LABS: ALBUMIN 3.3 g/dl (3.4-5.0); CALCIUM 9.3 mg/dL (8.5-10.1); LIPASE 249 U/L (73-393); MAGNESIUM 2.1 mg/dL (1.8-2.4)
[2020-12-09 22:49] LABS: PHOSPHOROUS 4.2 mg/dL (2.5-4.9)
[2020-12-09 22:50] LABS: CREATININE 0.9 mg/dL (0.55-1.3)
[2020-12-09 22:51] LABS: BILIRUBIN,TOTAL 0.4 mg/dL (0.2-1); TOT PROT 7.2 g/dl (6.4-8.2)
[2020-12-10] MEDS ORDERED: SODIUM CHLORIDE 0.45% 1,000 ML IV SCH ×3 (00:30→01:30)
[2020-12-10] MEDS ORDERED: CEFTRIAXONE 1,000 MG in DEXTROSE 5%-WATER - 50 ML IVPB ONE (01:12)
[2020-12-10] MEDS ORDERED: CEFTRIAXONE 1 GM/50 ML BAG ONE ×2 (02:25→09:44)
[2020-12-10 07:29] LABS: HEMATOCRIT 40.2 % (35.4-49); HEMOGLOBIN 13.8 GM/dL (11.7-16.9); MCH 29.6 pg (25.7-33.7); MCHC 34.4 g/dl (32.0-35.9); MEAN CELL VOLUME 86.2 fl (80-96); MEAN PLT VOLUME 7.4 fl (7.5-11.1); PLATELET COUNT 380 K/MM3 (134-434); RBC 4.67 M/mm3 (4.00-5.60); RDW 13.9 % (11.9-15.9); WHITE BLOOD COUNT 11.1 K/mm3 (4.0-10.0)
[2020-12-10 07:49] LABS: POTASSIUM 4.3 mmol/L (3.5-5.1)
[2020-12-10 07:56] LABS: CALCIUM 9.3 mg/dL (8.5-10.1)
[2020-12-10 07:57] LABS: ALBUMIN 3.4 g/dl (3.4-5.0)
[2020-12-10 07:59] LABS: BILIRUBIN,TOTAL 0.6 mg/dL (0.2-1); TOT PROT 7.4 g/dl (6.4-8.2)
[2020-12-10 08:00] LABS: CREATININE 0.8 mg/dL (0.55-1.3)
[2020-12-10] MEDS: INSULIN SLIDING SCALE (NOVOLOG) 1 VIAL SQ SCH ×4 (08:51→22:25)
[2020-12-10] MEDS ORDERED: LISINOPRIL 20 MG TABLET ONE (09:43)
[2020-12-10] MEDS ORDERED: metoPROLOL SUCCINATE 25 MG TAB.SR.24H (FP) ONE (09:43)
[2020-12-10] MEDS ORDERED: ENOXAPARIN NA (PORCINE) 40 MG/0.4 ML DISP.SYRIN SQ ONE (09:44)
[2020-12-10] MEDS: CEFTRIAXONE 1 GM in DEXTROSE 5%-WATER - 50 ML IVPB SCH (10:28)
[2020-12-10] MEDS: LISINOPRIL 20 MG TABLET PO SCH (10:28)
[2020-12-10] MEDS: metoPROLOL SUCCINATE 25 MG TAB.SR.24H (FP) PO SCH ×2 (10:28→22:21)
[2020-12-10] MEDS: GEMFIBROZIL 600 MG TABLET (FP) PO SCH ×2 (10:28→22:21)
[2020-12-10] MEDS: ENOXAPARIN NA (PORCINE) 40 MG/0.4 ML DISP.SYRIN SQ SCH (10:28)
[2020-12-10 16:40] VITALS: BMI 24.2
[2020-12-10] MEDS ORDERED: FLU VACCINE (FLULAVAL) PF 60 MCG/0.5 ML SYRINGE 2020-2021 IM ONE (16:40)
[2020-12-10] MEDS ORDERED: PNEUMOC 13-VAL CONJ-DIP CRM/PF 0.5 ML DISP.SYRIN IM ONE (17:30)
[2020-12-10] MEDS ORDERED: morphine SULFATE 4 MG/ML VIAL IVPUSH PRN (18:39)
[2020-12-10 22:17] LABS: BLOOD UREA NITROGEN 23.6 mg/dL (7-18); CALCIUM 8.6 mg/dL (8.5-10.1)
[2020-12-10] MEDS: ATORVASTATIN CA 20 MG TABLET (FP) PO SCH (22:21)
[2020-12-10 22:22] LABS: TOT PROT 6.7 g/dl (6.4-8.2)
[2020-12-11] MEDS: INSULIN SLIDING SCALE (NOVOLOG) 1 VIAL SQ SCH ×4 (06:05→23:14)
[2020-12-11 09:27] LABS: HEMATOCRIT 37.4 % (35.4-49); HEMOGLOBIN 12.7 GM/dL (11.7-16.9); MCH 29.5 pg (25.7-33.7); MEAN CELL VOLUME 86.7 fl (80-96); MEAN PLT VOLUME 7.6 fl (7.5-11.1); PLATELET COUNT 374 K/MM3 (134-434); RBC 4.31 M/mm3 (4.00-5.60); WHITE BLOOD COUNT 10.3 K/mm3 (4.0-10.0)
[2020-12-11 09:53] LABS: POTASSIUM 4.2 mmol/L (3.5-5.1)
[2020-12-11 10:00] LABS: BLOOD UREA NITROGEN 32.5 mg/dL (7-18); CALCIUM 8.9 mg/dL (8.5-10.1)
[2020-12-11 10:03] LABS: CREATININE 1.5 mg/dL (0.55-1.3)
[2020-12-11] MEDS ORDERED: DOCUSATE SODIUM 100 MG CAPSULE (FP) PO PRN (10:07)
[2020-12-11] MEDS ORDERED: ACETAMINOPHEN 325 MG TABLET (FP) PO PRN (10:12)
[2020-12-11] MEDS ORDERED: TAMSULOSIN HCL 0.4 MG CAP PO SCH (10:30)
[2020-12-11] MEDS ORDERED: DEXTROSE 5%-WATER - 50 ML IVPB ONE (11:41)
[2020-12-11] MEDS ORDERED: cefTRIAXone SODIUM 1 GM VIAL ONE (11:41)
[2020-12-11] MEDS: metoPROLOL SUCCINATE 25 MG TAB.SR.24H (FP) PO SCH (11:45)
[2020-12-11] MEDS: GEMFIBROZIL 600 MG TABLET (FP) PO SCH ×2 (11:50→23:14)
[2020-12-11] MEDS: CEFTRIAXONE 1 GM in DEXTROSE 5%-WATER - 50 ML IVPB SCH (12:02)
[2020-12-11] MEDS: SODIUM CHLORIDE 1,000 ML IV SCH (12:10)
[2020-12-11] MEDS: POLYETHYLENE GLYCOL 3350 119 GM BTL PO SCH (12:11)
[2020-12-11] MEDS: ENOXAPARIN NA (PORCINE) 40 MG/0.4 ML DISP.SYRIN SQ SCH (12:19)
[2020-12-11] MEDS: LISINOPRIL 20 MG TABLET PO SCH (12:19)
[2020-12-11] MEDS: HEPARIN NA (PORCINE) 5,000 UNITS/ML 1ML VIAL SQ SCH ×2 (13:53→23:15)
[2020-12-11] MEDS: DOCUSATE SODIUM 100 MG CAPSULE (FP) PO SCH ×2 (15:24→23:14)
[2020-12-11] MEDS: ATORVASTATIN CA 20 MG TABLET (FP) PO SCH (23:15)
[2020-12-11] MEDS: TAMSULOSIN HCL 0.4 MG CAP PO SCH (23:15)
[2020-12-12] MEDS: SODIUM CHLORIDE 1,000 ML IV SCH ×3 (02:14→20:42)
[2020-12-12] MEDS ORDERED: HEPARIN NA (PORCINE) 5,000 UNITS/ML 1ML VIAL SQ SCH ×2 (06:00→14:00)
[2020-12-12] MEDS: HEPARIN NA (PORCINE) 5,000 UNITS/ML 1ML VIAL SQ SCH ×3 (06:16→21:36)
[2020-12-12] MEDS: DOCUSATE SODIUM 100 MG CAPSULE (FP) PO SCH ×3 (06:16→21:36)
[2020-12-12] MEDS: INSULIN SLIDING SCALE (NOVOLOG) 1 VIAL SQ SCH ×4 (06:19→21:40)
[2020-12-12] MEDS ORDERED: MINERAL OIL ENEMA 133 ML ENEMA RC ONE (08:48)
[2020-12-12 09:36] LABS: BASO % 0.8 % (0-2.0); EOS % 1.4 % (0-4.5); HEMATOCRIT 37.1 % (35.4-49); HEMOGLOBIN 12.8 GM/dL (11.7-16.9); LYMPH % 14.3 % (8-40); MCH 29.6 pg (25.7-33.7); MCHC 34.5 g/dl (32.0-35.9); MEAN CELL VOLUME 85.9 fl (80-96); MEAN PLT VOLUME 7.3 fl (7.5-11.1); MONO % 7.1 % (3.8-10.2); NEUT % 76.4 % (42.8-82.8); PLATELET COUNT 331 K/MM3 (134-434); RBC 4.32 M/mm3 (4.00-5.60); RDW 13.7 % (11.9-15.9); WHITE BLOOD COUNT 8.4 K/mm3 (4.0-10.0)
[2020-12-12 09:50] LABS: POTASSIUM 3.9 mmol/L (3.5-5.1)
[2020-12-12 10:29] LABS: ALBUMIN 2.9 g/dl (3.4-5.0); BLOOD UREA NITROGEN 26.8 mg/dL (7-18); CALCIUM 8.8 mg/dL (8.5-10.1); MAGNESIUM 2.1 mg/dL (1.8-2.4)
[2020-12-12 10:32] LABS: CREATININE 0.8 mg/dL (0.55-1.3)
[2020-12-12 10:34] LABS: TOT PROT 6.6 g/dl (6.4-8.2)
[2020-12-12 10:36] LABS: BILIRUBIN,TOTAL 0.8 mg/dL (0.2-1)
[2020-12-12] MEDS ORDERED: cefTRIAXone SODIUM 1 GM VIAL ONE (11:10)
[2020-12-12] MEDS ORDERED: DEXTROSE 5%-WATER - 50 ML IVPB ONE (11:10)
[2020-12-12] MEDS: CEFTRIAXONE 1 GM in DEXTROSE 5%-WATER - 50 ML IVPB SCH (11:14)
[2020-12-12] MEDS: TAMSULOSIN HCL 0.4 MG CAP PO SCH ×2 (11:15→21:36)
[2020-12-12] MEDS: GEMFIBROZIL 600 MG TABLET (FP) PO SCH ×2 (11:15→21:36)
[2020-12-12] MEDS: POLYETHYLENE GLYCOL 3350 119 GM BTL PO SCH (11:17)
[2020-12-12] MEDS: ATORVASTATIN CA 20 MG TABLET (FP) PO SCH (21:36)
[2020-12-13] MEDS: DOCUSATE SODIUM 100 MG CAPSULE (FP) PO SCH (05:21)
[2020-12-13] MEDS: HEPARIN NA (PORCINE) 5,000 UNITS/ML 1ML VIAL SQ SCH (05:22)
[2020-12-13] MEDS: INSULIN SLIDING SCALE (NOVOLOG) 1 VIAL SQ SCH ×2 (08:07→11:54)
[2020-12-13 10:34] LABS: CALCIUM 8.3 mg/dL (8.5-10.1)
[2020-12-13 10:35] LABS: BLOOD UREA NITROGEN 15.8 mg/dL (7-18); MAGNESIUM 1.9 mg/dL (1.8-2.4)
[2020-12-13 10:36] VITALS: BP 137/69; PULSE 67; TEMP 97.9
[2020-12-13 10:38] LABS: CREATININE 0.7 mg/dL (0.55-1.3)
[2020-12-13] MEDS ORDERED: DEXTROSE 5%-WATER - 50 ML IVPB ONE (10:41)
[2020-12-13] MEDS ORDERED: cefTRIAXone SODIUM 1 GM VIAL ONE (10:41)
[2020-12-13] MEDS: CEFTRIAXONE 1 GM in DEXTROSE 5%-WATER - 50 ML IVPB SCH (10:46)
[2020-12-13] MEDS: GEMFIBROZIL 600 MG TABLET (FP) PO SCH (10:47)
[2020-12-13] MEDS: TAMSULOSIN HCL 0.4 MG CAP PO SCH (10:48)
[2020-12-13] MEDS: SODIUM CHLORIDE 1,000 ML IV SCH (10:48)
[2020-12-13] MEDS: POLYETHYLENE GLYCOL 3350 119 GM BTL PO SCH (10:48)
== END 2020-12-13 13:11 | disposition home or self-care (01) | DRG 725 ==
LOC: JER 19:11 → JERBED 12-10 01:13 → J5S 12-10 11:54
PROVIDERS: ADMIT Hospitalist
DX: N40.1 Benign prostatic hyperplasia with lower urinary tract symptoms (principal); G93.41 Metabolic encephalopathy; N13.6 Pyonephrosis; E87.1 Hypo-osmolality and hyponatremia; N17.9 Acute kidney failure, unspecified; N39.0 Urinary tract infection, site not specified; E87.0 Hyperosmolality and hypernatremia; I25.10 Atherosclerotic heart disease of native coronary artery without angina pectoris; I10 Essential (primary) hypertension; E78.5 Hyperlipidemia, unspecified; H54.8 Legal blindness, as defined in USA; E11.22 Type 2 diabetes mellitus with diabetic chronic kidney disease; E86.0 Dehydration; K59.00 Constipation, unspecified; Z95.5 Presence of coronary angioplasty implant and graft; R33.9 Retention of urine, unspecified; N18.9 Chronic kidney disease, unspecified; D72.829 Elevated white blood cell count, unspecified
CPT/HCPCS: 36415; 70450-TC; 71260-TC; 74177-TC; 80048; 80053; 81003; 82140; 82550; 82565; 82962; 83605; 83690; 83735; 83930; 83935; 84100; 84300; 84484; 85025; 85027; 85610; 85730; 87040; 87086; 87186; 90670; 93005; 93010; 99291; 99292; C9803; G0008; G0009; J1644; Q2036; Q9967; U0003